=== PATIENT | male | born 1960 | race Caucasian/White ===

== ENCOUNTER 2016-12-30 09:13 | Emergency (ER) | payer OTHER ==
[2016-12-30 09:20] VITALS: RESP 18
[2016-12-30] MEDS ORDERED: NS 1,000 ML IV ONE (09:28)
[2016-12-30] MEDS ORDERED: ONDANSETRON 4 MG/2 ML VIAL IVP ONE (09:28)
--- NOTE | 2016-12-30 09:48 | EDPHY ---
HPI/HX/ROS/PE/MDM Narrative: CHIEF COMPLAINT: Nausea and vomiting HPI: This patient is a 56 year old male complaining of rapid onset nausea and vomiting this morning. He woke feeling well, and went for a run, had coffee and breakfast, and went to work, all part of his usual routine. While in a meeting, he had a quick onset of clamminess and nausea. He left the meeting and called a regional tanker truck driver, and vomited on the way here to the emergency department. He has vomited once again since arrival. He states he felt "unsettled" in his head, but denies associated vertigo. He denies chest pain or shortness of breath. He has a brain MRI scheduled next Tuesday for evaluation of diplopia ongoing over the last two years. He does not currently have diplopia and he is usually able to resolve this with hydration. He denies numbness or weakness anywhere in his body. He believes his symptoms may be due to food poisoning from a potato salad yesterday evening, but given his recent evaluations for his double vision , he presents for evaluation. He denies fever, diarrhea, urinary complaints, or other associated symptoms. REVIEW OF SYSTEMS: Aside from elements discussed in the HPI, a comprehensive 10-point review of systems was reviewed and is negative. PMH: Denies. SOCIAL HISTORY: Works as an environmental services technician. . Alcohol use in moderation. PHYSICAL EXAM: General:Patient is alert, in no acute distress. ENT:Eyes are normal to inspection. ENT inspection normal. Neck: Normal inspection. Full range of motion. Respiratory:No respiratory distress. Breath sounds normal bilaterally. Cardiovascular: Regular rate and rhythm. Strong peripheral pulses. Normal cap refill. Abdomen:The abdomen is nontender to palpation. There are no peritoneal signs. There are normal bowel sounds. Back: Normal to inspection. No tenderness to palpation. Skin: Normal color. No rash. Warm and dry. Extremities: Normal appearance. Full range of motion. Neuro: Oriented x3. Normal motor function. Normal sensory function. No pronator drift. Normal [id number]. No dysdiadochokinesia. ED Course: 56 year old male presents with sudden onset nausea and vomiting this morning. He was scheduled for MRI next week, plan to complete brain MRI at this time. Plan for labs including CBC, BMP, and Troponin. IV established. Administered 4mg IV Zofran, 1L IV NS for symptom relief. Labs unremarkable. 11:[address] Haynes, radiologist. Brain MRI normal. 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 Dr. Haynes recommends the patient follow up with ENT for further evaluation. Discussed results with the patient. Plan to discharge home in good condition with prescription for Zofran. Follow up and return precautions discussed. The patient is comfortable with this plan. MDM: This patient presents with diaphoresis and vomiting which have now largely resolved. There is no evidence of cardiac ischemia- his ECG and troponin are normal, he has no known history of cardiac disease, and he does not complain of chest pain at any point. Given the somewhat unusual nature of his symptoms and the report of diplopia and upcoming MRI of his brain, we decided on a plan to perform MRI today to rule out potential emergent condition such as CVA, SAH, tumor, or other pathology. Thankfully this study was essentially negative. - Data Points Imaging Results: Imaging Impressions Brain MRI 12/30/16 10:03 Impression: 1. Normal MRI appearance of brain without evidence of acute ischemic injury. 2. 6 mm submucosal lesion within the deep left torus tubarius. This may represent a cystic or solid nodule. Postcontrast enhanced imaging would be of benefit in further characterization. Also, consider ENT consultation. Results called to Dr. Wu at 11:20 AM. Imaging: Discussed imaging studies w/ call center associate Radiologist Laboratory Results: Laboratory Results 12/30/16 09:56 12/30/16 Unknown 12/30/16 12/30/16 Unknown 09:56 WBC 4.74 10^3/uL 10^3/uL (3.80-9.50) RBC 5.21 10^6/uL 10^6/uL (4.40-6.38) Hgb 15.3 g/dL g/dL (13.7-17.5) Hct 44.0 % % (40.0-51.0) MCV 84.5 fL fL (81.5-99.8) MCH 29.4 pg pg (27.9-34.1) MCHC 34.8 g/dL g/dL (32.4-36.7) RDW 12.5 % % (11.5-15.2) Plt Count 195 10^3/uL 10^3/uL (150-400) MPV 10.1 fL fL (8.7-11.7) Neut % (Auto) 57.2 % % (39.3-74.2) Lymph % (Auto) 30.4 % % (15.0-45.0) [place] % (Auto) 8.4 % % (4.5-13.0) Eos % (Auto) 2.1 % % (0.6-7.6) Baso % (Auto) 1.7 % % (0.3-1.7) Nucleat RBC Rel Count 0.0 % % (0.0-0.2) Absolute Neuts (auto) 2.71 10^3/uL 10^3/uL (1.70-6.50) Absolute Lymphs (auto) 1.44 10^3/uL 10^3/uL (1.00-3.00) Absolute Monos (auto) 0.40 10^3/uL 10^3/uL (0.30-0.80) Absolute Eos (auto) 0.10 10^3/uL 10^3/uL (0.03-0.40) Absolute Basos (auto) 0.08 10^3/uL 10^3/uL (0.02-0.10) Absolute Nucleated RBC 0.00 10^3/uL 10^3/uL (0-0.01) Immature Gran % 0.2 % % (0.0-1.1) Immature Gran # 0.01 10^3/uL 10^3/uL (0.00-0.10) Sodium 138 mEq/L mEq/L (134-144) Potassium 4.1 mEq/L mEq/L (3.5-5.2) Chloride 103 mEq/L mEq/L (97-110) Carbon Dioxide 22 mEq/l mEq/l (22-31) Anion Gap 13 mEq/L mEq/L (8-16) BUN 13 mg/dL mg/dL (7-23) Creatinine 1.2 mg/dL mg/dL (0.7-1.3) Estimated GFR > 60 Glucose 126 mg/dL H mg/dL (70-100) Calcium 9.6 mg/dL mg/dL (8.5-10.4) Troponin I < 0.012 ng/mL ng/mL (0.000-0.034) Medications Given: Discontinued Medications Sodium Chloride (Ns) 1,000 mls @ 0 mls/hr IV ONCE ONE; Wide Open PRN Reason: Protocol Stop: 12/30/16 09:29 Last Admin: 12/30/16 09:37 Dose: 1,000 mls Ondansetron HCl (Zofran) 4 mg IVP EDNOW ONE Stop: 12/30/16 09:29 Last Admin: 12/30/16 09:37 Dose: 4 mg General Time Seen by Provider: 12/30/16 09:38 Initial Vital Signs: Initial Vital Signs Temperature (C) 36.9 C 12/30/16 09:15 Heart Rate 57 L 12/30/16 09:15 Respiratory Rate 18 12/30/16 09:15 Blood Pressure 115/92 H 12/30/16 09:15 O2 Sat (%) 95 12/30/16 09:15 O2 Delivery Mode Room Air Allergies/Adverse Reactions: No Known Allergies Allergy (Unverified 08/01/15 18:33) Home Medications: Medication Instructions Recorded Ondansetron Odt [Zofran Odt] 4 mg PO Q4PRN PRN #10 tab 12/30/16 Departure - Departure Disposition: Home, Routine, Self-Care Clinical Impression: Nausea & vomiting Condition: Good Instructions: Acute Nausea and Vomiting (ED) Additional Instructions: 1. Follow up with your primary care physician this week for continued evaluation of symptoms. 2. Take Zofran as prescribed as needed for nausea. 3. Return to the emergency department for uncontrollable vomiting or diarrhea, fever, or other worsening of condition. 4. Follow up with an ear, nose, and throat specialist for evaluation of the incidental finding on your MRI. We have referred you to our [facility] security control center operator. Referrals: Dominick Braun MD [Primary Care Provider] - As per Instructions Debbie Ventura MD [Medical Doctor] - As per Instructions Prescriptions: Ondansetron Odt [Zofran Odt] 4 mg PO Q4PRN PRN #10 tab PRN Reason: Nausea Report Scribed for: Brice Wu Report Scribed by: Kristi Bangura Date of Report: 12/30/16 Time of Report: 09:48 Physician Review and Approval Statement: Portions of this note were transcribed by an ED scribe. I personally performed the history, physical exam, and medical decision making; and confirm the accuracy of the information in the transcribed note.
[2016-12-30 10:03] LABS: % IMMATURE GRANULYOCYTES 0.2 % (0.0-1.1); ABSOLUTE IMMATURE GRANULOCYTES 0.01 10^3/uL (0.00-0.10); ADD DIFF? NO; ADD MORPH? NO; ADD SCAN? YES; ATYPICAL LYMPHOCYTE FLAG 20 (0-99); FRAGMENT RBC FLAG 0 (0-99); HEMOGLOBIN 15.3 g/dL (13.7-17.5); LEFT SHIFT FLG 0 (0-99); LIPEMIA HEMOLYSIS FLAG 90 (0-99); MEAN CELL HEMOGLOBIN 29.4 pg (27.9-34.1); MEAN CELL HEMOGLOBIN CONCENTR. 34.8 g/dL (32.4-36.7); MEAN CELL VOLUME 84.5 fL (81.5-99.8); MEAN PLATELET VOLUME 10.1 fL (8.7-11.7); PLATELET COUNT 195 10^3/uL (150-400); RED BLOOD CELL COUNT 5.21 10^6/uL (4.40-6.38); RED CELL DISTRIBUTION WIDTH 12.5 % (11.5-15.2)
[2016-12-30 10:05] LABS: PLATELET CLUMPS FLAG 130 (0-99)
[2016-12-30 10:10] LABS: ANION GAP 13 mEq/L (8-16); CALCIUM 9.6 mg/dL (8.5-10.4); CARBON DIOXIDE 22 mEq/l (22-31); CHLORIDE 103 mEq/L (97-110); CREATININE 1.2 mg/dL (0.7-1.3); GLOMERULAR FILTRATION RATE > 60; GLUCOSE 126 mg/dL (70-100); POTASSIUM 4.1 mEq/L (3.5-5.2); SODIUM 138 mEq/L (134-144)
[2016-12-30 10:21] LABS: TROPONIN I < 0.012 ng/mL (0.000-0.034)
[2016-12-30 10:38] LABS: SCAN NEGATIVE
[2016-12-30 11:09] VITALS: PULSE 53
[2016-12-30 11:55] VITALS: BP 121/89; TEMP 97.5; O2SAT 99
== END 2016-12-30 11:55 | disposition home or self-care (01) ==
DX: R11.2 Nausea with vomiting, unspecified (principal); E86.9 Volume depletion, unspecified
CPT/HCPCS: 96374; J2405

== ENCOUNTER 2018-10-15 13:57 | Emergency (ER) | payer OTHER | END 2018-10-15 16:30 | disposition home or self-care (01) ==